=== PATIENT | male | born 1965 | race Caucasian/White ===

== ENCOUNTER 2020-05-09 09:21 | Emergency (ER) | payer OTHER ==
--- NOTE | 2020-05-09 09:36 | ED Physician Documentation ---
PD HPI HEAD INJURY - Stated complaint Stated Complaint: LAC FOREHEAD - Chief complaint Chief Complaint: Laceration - History obtained from History obtained from: Patient - History of Present Illness Mechanism of head injury: Blow (he was getting into hammock and the carabiner clip broke, causing it to whip against his head. He was not far off the ground, so no injury from the fall itself as hammock broke.) Where head injury occurred: Other (friends house) Timing - onset: How many hours ago (1), Today Location of injury: Front (forehead, causing small laceration.) Associated symptoms: No: LOC, AMS, Nausea / vomiting Symptoms worsen with: Palpation Similar symptoms before: Has not had sx before Review of Systems Constitutional: denies: Fever Nose: denies: Rhinorrhea / runny nose, Congestion Throat: denies: Sore throat Respiratory: denies: Cough GI: denies: Nausea, Vomiting Skin: reports: Laceration (s) Neurologic: denies: Confused, Altered mental status, Headache, LOC PD PAST MEDICAL HISTORY - Past Medical History Cardiovascular: High cholesterol Respiratory: None Neuro: None HEENT: None Psych: Depression Derm: None - Past Surgical History Past Surgical History: No - Present Medications Home Medications: Ambulatory Orders Medication Instructions Recorded Confirmed Pravastatin [Pravachol] 0 mg DAILY 05/09/20 05/09/20 buPROPion [Wellbutrin Sr] 0 mg DAILY 05/09/20 05/09/20 - Allergies Allergies/Adverse Reactions: Allergies Allergy/AdvReac Type Severity Reaction Status Date / Time No Known Drug Allergies Allergy Verified 05/09/20 09:30 - Social History Does the pt smoke?: No Smoking Status: Never smoker - Immunizations Immunizations are current?: Yes PD ED PE NORMAL - Vitals Vital signs reviewed: Yes - General General: Alert and oriented X 3, No acute distress, Well developed/nourished - HEENT HEENT: PERRL, EOMI, Other (upper forehead with small 1 cm laceration with edges close together and no bleeding nor FB. ) - Neck Neck: Supple, no meningeal sign, No bony TTP - Derm Derm: Normal color, Warm and dry - Neuro Neuro: Alert and oriented X 3, No motor deficit, Normal speech Results - Vitals Vitals: Vital Signs - 24 hr 05/09/20 05/09/20 09:30 10:10 Temperature 35.9 C L Heart Rate 49 L 70 Respiratory 16 16 Rate Blood Pressure 163/82 H 157/89 H O2 Saturation 98 Oxygen O2 Source Room air PD MEDICAL DECISION MAKING - ED course Complexity details: considered differential (small lac treatable with benzoin and steri-strips. No concussive symptoms. ), d/w patient Departure - Departure Disposition: 01 Home, Self Care Clinical Impression: Forehead laceration Qualifiers: Encounter type: initial encounter Qualified Code(s): S01.81XA - Laceration without foreign body of other part of head, initial encounter Condition: Stable Record reviewed to determine appropriate education?: Yes Instructions: ED Laceration Facial Skin Glue Follow-Up: Keo Gonzalez, DO [Primary Care Provider] - Comments: Keep the area clean and dry. Allow the Steri-Strips to fall off on their own after several days. At that point you can start treating it as a usual small cut with soap and water ointment and a Band-Aid. Recheck if signs of infection. Discharge Date/Time: 05/09/20 10:13
[2020-05-09 10:16] VITALS: BP 157/89
== END 2020-05-09 10:13 | disposition home or self-care (01) ==
LOC: ED 09:21
DX: S01.81XA Laceration without foreign body of other part of head, initial encounter (principal); W20.8XXA Other cause of strike by thrown, projected or falling object, initial encounter; Y93.89 Activity, other specified; Y92.009 Unspecified place in unspecified non-institutional (private) residence as the place of occurrence of the external cause
CPT/HCPCS: 99281; 99282